=== PATIENT | female | born 1985 | race African-American/Black ===

== ENCOUNTER 2018-07-19 09:54 | Emergency (ER) | payer MEDICARE, OTHER ==
[~2018-07-19] VITALS: Ht 154.9 cm; Wt 54.0 kg
[2018-07-19] MEDS ORDERED: KETOROLAC 30MG/ML VIAL IM ONE (14:30)
[2018-07-19] MEDS ORDERED: METHOCARBAMOL 500MG TABLET PO ONE (14:30)
[2018-07-19 15:45] VITALS: BP 121/70
== END 2018-07-19 16:36 | disposition home or self-care (01) ==
LOC: ER 09:54
DX: S16.1XXA Strain of muscle, fascia and tendon at neck level, initial encounter (principal); S39.012A Strain of muscle, fascia and tendon of lower back, initial encounter; V89.2XXA Person injured in unspecified motor-vehicle accident, traffic, initial encounter; Y93.89 Activity, other specified; Y92.89 Other specified places as the place of occurrence of the external cause; Y99.8 Other external cause status
CPT/HCPCS: 70450; 71045; 72110; 72125; 93005; 96372; 99284; J1885

== ENCOUNTER 2025-02-14 17:16 | Emergency (ER) | payer OTHER ==
[~2025-02-14] VITALS: Ht 154.9 cm; Wt 57.0 kg
[2025-02-14 17:21] VITALS: O2SAT 99
[2025-02-14 17:28] VITALS: RESP 19; TEMP 36.8
[2025-02-14] MEDS: FLUORESCEIN SODIUM 1MG/STRIP BOTHEYE STA (18:23)
[2025-02-14] MEDS: TETRACAINE 0.5% OPHTH DROPS 4ML BOTHEYE STA (18:23)
[2025-02-14] MEDS ORDERED: GLYC30DR OP (19:31)
[2025-02-14 20:23] VITALS: BP 121/82; PULSE 65; O2SAT 99
== END 2025-02-14 20:39 | disposition home or self-care (01) ==
LOC: ER 17:16
DX: T26.10XA Burn of cornea and conjunctival sac, unspecified eye, initial encounter (principal); Y04.0XXA Assault by unarmed brawl or fight, initial encounter; Y93.89 Activity, other specified; Y92.89 Other specified places as the place of occurrence of the external cause; Y99.8 Other external cause status
CPT/HCPCS: 99283